=== PATIENT | female | born 2000 | race Caucasian/White ===

== ENCOUNTER 2021-05-03 16:48 | Inpatient (IN) | payer MEDICAID ==
[~2021-05-03] VITALS: Ht 165.1 cm; Wt 100.2 kg
[2021-05-03] MEDS ORDERED: DOCUSATE 100 MG CAPSULE PO PRN (19:00)
[2021-05-03] MEDS ORDERED: POLYETHYLENE GLYCOL 17 GM PACKET PO PRN (19:00)
[2021-05-03] MEDS ORDERED: ONDANSETRON ODT 4 MG PO PRN (19:00)
[2021-05-03 20:00] VITALS: BP 117/80
[2021-05-04 06:50] LABS: BASOPHILS % (AUTO) 1 % (0-1); EOSINOPHILS % (AUTO) 3 % (1-7); LYMPHOCYTES % (AUTO) 30 % (22-44); MEAN CORPUSCULAR HEMOGLOBIN 30.5 pg (27.0-34.8); MEAN CORPUSCULAR HGB CONC 33.4 g/dL (32.4-35.8); MONOCYTES % (AUTO) 9 % (2-9); NEUTROPHILS % (AUTO) 57 % (42-75); PLATELET COUNT 213 x10^3/uL (130-400); RED CELL DISTRIBUTION WIDTH 13.3 % (9.6-15.2)
[2021-05-04 07:02] LABS: ANION GAP 8 mmol/L (5-15); CALCIUM 8.6 mg/dL (8.5-10.1); CHLORIDE 109 mmol/L (98-107)
[2021-05-04 07:27] LABS: ALANINE AMINOTRANSFERASE 119 U/L (12-78); ALKALINE PHOSPHATASE 76 U/L (45-117); BILIRUBIN,TOTAL 0.5 mg/dL (0.2-1.0); CHOLESTEROL, TOTAL 157 mg/dL (140-239); CREATININE 0.53 mg/dL (0.55-1.02); FREE T4 (FREE THYROXINE) 1.14 ng/dL (0.76-1.46); HDL CHOL % 25 % (28-40); HDL CHOLESTEROL (DIRECT) 39 mg/dL (40-60); LDL CHOLESTEROL,CALCULATED 101 mg/dL (54-169); LDL/HDL RATIO 2.6 (0.5-3.0); TOTAL PROTEIN 6.8 g/dL (6.4-8.2); TRIGLYCERIDES 86 mg/dL (50-200); VLDL CHOLESTEROL 17 mg/dL (0-25)
[2021-05-04 07:55] VITALS: BP 114/72
[2021-05-04] MEDS: NICOTINE 21 MG/24 HR PATCH.TD24 TD SCH (08:36)
[2021-05-04 16:30] LABS: HCG UR SG 1.009 (1.003-1.030)
[2021-05-04 16:32] LABS: MICROSCOPIC INDICATED
[2021-05-04 19:34] VITALS: BP 116/83
[2021-05-04] MEDS: PRAZOSIN 1 MG CAPSULE PO SCH (20:28)
[2021-05-05 07:03] LABS: ALBUMIN 3.1 g/dL (3.4-5.0); ANION GAP 6 mmol/L (5-15); CALCIUM 8.6 mg/dL (8.5-10.1); CHLORIDE 107 mmol/L (98-107)
[2021-05-05 07:07] LABS: ALANINE AMINOTRANSFERASE 94 U/L (12-78); ALKALINE PHOSPHATASE 78 U/L (45-117); BILIRUBIN,TOTAL 0.7 mg/dL (0.2-1.0); CREATININE 0.53 mg/dL (0.55-1.02); TOTAL PROTEIN 6.9 g/dL (6.4-8.2)
[2021-05-05 07:25] VITALS: BP 105/70
[2021-05-05] MEDS: SERTRALINE 50MG TABLET PO SCH (08:39)
[2021-05-05] MEDS: NICOTINE 21 MG/24 HR PATCH.TD24 TD SCH (08:40)
[2021-05-05] MEDS: IBUPROFEN 600 MG TABLET PO PRN (18:06)
[2021-05-05 19:27] VITALS: BP 118/78
[2021-05-05] MEDS: PRAZOSIN 1 MG CAPSULE PO SCH (20:30)
[2021-05-06 07:13] VITALS: BP 108/70
[2021-05-06] MEDS: SERTRALINE 50MG TABLET PO SCH (08:20)
[2021-05-06] MEDS: NICOTINE 21 MG/24 HR PATCH.TD24 TD SCH (08:21)
[2021-05-06] MEDS ORDERED: SERT50TA28 PO (14:47)
[2021-05-06] MEDS ORDERED: PRAZ1CAP2 PO (14:47)
[2021-05-06] MEDS ORDERED: NICO-587 TD (14:47)
[2021-05-06 19:18] VITALS: BP 113/75
[2021-05-06] MEDS: PRAZOSIN 1 MG CAPSULE PO SCH (20:18)
[2021-05-06] MEDS: IBUPROFEN 600 MG TABLET PO PRN (20:18)
[2021-05-07 07:26] VITALS: BP 91/54
[2021-05-07] MEDS: IBUPROFEN 600 MG TABLET PO PRN (08:42)
[2021-05-07] MEDS: SERTRALINE 50MG TABLET PO SCH (08:46)
[2021-05-07] MEDS: NICOTINE 21 MG/24 HR PATCH.TD24 TD SCH (08:48)
== END 2021-05-07 13:25 | disposition home or self-care (01) | DRG 885 ==
LOC: 3E 20:32
PROVIDERS: ADMIT Psychiatry & Neurology Psychosomatic Medicine; ATTEND Psychiatry & Neurology Psychosomatic Medicine
DX: F33.2 Major depressive disorder, recurrent severe without psychotic features (principal); F43.10 Post-traumatic stress disorder, unspecified; F17.210 Nicotine dependence, cigarettes, uncomplicated; Z91.5 Personal history of self-harm; Z79.899 Other long term (current) drug therapy
CPT/HCPCS: 36415; 71045; 80053; 80061; 81001; 81025; 82607; 84439; 84443; 85025; 87077; 87086; 93005